=== PATIENT | male | born 1995 | race Two or more races ===

== ENCOUNTER 2021-09-21 08:01 | Outpatient (CLI) | payer OTHER ==
--- NOTE | 2021-09-21 09:38 | MRI Report ---
PROCEDURE: Shoulder LT W/O INDICATIONS: PAIN IN SHOULDER TECHNIQUE: Noncontrast oblique coronal T2 fast spin echo with fat saturation, oblique sagittal T1 spin echo and T2 fast spin echo with fat saturation, axial T1 spin echo and T2 fast spin echo with fat saturation t hrough the shoulder. COMPARISON: None. FINDINGS: Image quality: Excellent. Rotator cuff: Mild T2 signal elevation throughout the supraspinatus and infraspinatus tendons at the humeral insertion sites. Superimposed low-grade intrasubstance tearing of the posterior supraspinatus /anterior infraspinatus tendon junction at the humeral insertion site. Low-grade partial-thickness ar ticular surface tearing of the mid subscapularis tendon at the humeral insertion site. Teres minor is intact. No rotator cuff atrophy. Bones and bursae: No bone marrow contusions or fractures. Mild acromioclavicular joint degeneration. The acromion demonstrates conventional anatomy, without an os acromiale. No pathologic subacromial /subdeltoid bursal fluid is present. Capsule and soft tissues: There is undercutting of the mid posterior labrum. The long head of the bic eps tendon demonstrates normal location and morphology. The rotator interval appears normal, without fibrosis. The coracohumeral ligament is normal in thickness. IMPRESSION: 1. Supraspinatus and infraspinatus tendinopathy. 2. Low-grade tears of the supraspinatus/infraspinatus junction as well as the subscapularis. No full- thickness rotator cuff tear. 3. Acromioclavicular joint osteoarthritis. 4. Possible posterior labral tear. Reviewed by: Evie Brownlee MD on 09/21/2021 9:37 AM PDT Approved by: Evie Brownlee MD on 09/21/2021 9:37 AM PDT Station ID: [id number]
== END 2021-09-21 08:02 | disposition home or self-care (01) ==
LOC: DI 08:01
PROVIDERS: ATTEND Student in an Organized Health Care Education/Training Program
DX: M75.112 Incomplete rotator cuff tear or rupture of left shoulder, not specified as traumatic (principal); M19.012 Primary osteoarthritis, left shoulder; R93.6 Abnormal findings on diagnostic imaging of limbs

== ENCOUNTER 2022-02-06 13:32 | Outpatient (CLI) | payer OTHER ==
[2022-02-06 14:09] VITALS: BP 130/74
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
== END 2022-02-06 13:33 | disposition home or self-care (01) ==
LOC: SC 13:32
PROVIDERS: ATTEND Nurse Practitioner Family
DX: G47.10 Hypersomnia, unspecified (principal); R51.9 Headache, unspecified; R06.83 Snoring
CPT/HCPCS: 99202; 99212

== ENCOUNTER 2022-03-02 09:32 | Outpatient (CLI) | payer OTHER | END 2022-03-02 09:33 | disposition home or self-care (01) | LOC: SC 09:32 | PROVIDERS: ATTEND Nurse Practitioner Family | DX: R06.83 Snoring (principal); G47.8 Other sleep disorders; R06.81 Apnea, not elsewhere classified; R51.9 Headache, unspecified; G47.10 Hypersomnia, unspecified; R53.83 Other fatigue | CPT/HCPCS: 95806 ==

== ENCOUNTER 2022-03-23 10:55 | Outpatient (CLI) | payer OTHER ==
--- NOTE | 2022-03-23 11:22 | SLEEP CARE CONSULTATION ---
Information from patient questionnaire entered by Zulema Sunshine. I have reviewed and concur with the information entered by Zulema Sunshine. This document represents the service I personally performed and the decisions made by , Karla Rebolledo ARNP. History of Present Illness Service Date and Time: 03/23/2022 1055 Initial [place] Sleepiness Scale score: 17 (01/2022) Current [place] Sleepiness Scale score: 17 (03/23/2022) Additional HPI information: LANRE BOUDREAUX returns for follow up and results of the recently performed home sleep study. The patient was informed of the following findings: No significant sleep disordered breathing with an average AHI of 1.4 and florencio oxygen saturation of 92%. I explained the pathophysiology behind obstructive sleep apnea. Patient does not have sleep apnea and was advised how weight gain could increase the risk of developing sleep apnea in the future. I strongly encouraged the patient to lose weight. Patient does not have significant sleep disordered breathing but has elevated AHI in supine position so advised positional therapy. Methods to achieve positional management therapy were discussed; such as, positioning with pillows, wearing a T-shirt with tennis balls sewn into the back or commercial positional belts. Patient has light snoring. Snoring can be reduced by weight loss. Weight loss is best achieved with diet consult. Patient instructed to contact PCP for referral. Snoring can also be treated with an oral appliance from a dentist. Advised to check insurance coverage. In addition, an ENT evaluation can be do to see if other treatment is indicated. Patient counseled not drink alcohol less than 4 hours before bedtime as it can increase snoring and apnea. Patient was cautioned about risks of drowsy driving until sleepiness symptoms resolve. Sleep Study - Results Type of Sleep Study: Home sleep study (completed 03/03/2022) Prior sleep studies: No Polysomnography/Home Sleep Study results: Physician Impression: The quality of the study is good. The length of the study is adequate (> 240 minutes). Please also see the tabulated and graphic data. 1. No significant sleep disordered breathing, with an AHI of 1.4/hr and florencio SaO2 of 92%. During the study, the patient had 6 apneas (6 obstructive, 0 central, 0 mixed) and 0 hypopneas. The longest episode lasted 26.0 seconds. The few respiratory events occurred almost exclusively during supine sleep (supine AHI was 7.4 and non-supine, 0.29). Allergies and Home Medications Drug allergies reviewed: Yes (NKDA) Home medication list reviewed: Yes (no changes) Review of Systems Review of systems same as previous: Yes (no changes) Physical Exam Vital signs obtained and entered by: Zulema Martin MA Blood Pressure: 126/68 (left arm) Cuff size: regular Heart Rate: 62 O2 Saturation: 97 Height: 5 ft 7 in Weight: 193 lb 3.2 oz Body Mass Index: 30.2 BMI Classification: Obese Impression and Plan Snoring but no significant sleep disordered breathing. Patient did have an elevated supine AHI at 7.4. He was advised that he should avoid sleeping supine to control apneas. Patient advised that often weight loss will reduce snoring as well as apnea risk. An oral appliance can also be used for snoring. This would require a dental consultation. Patient cautioned not to use other online appliances as can cause bite issues. A list of accredited dentists in [facility] who make oral appliances is in the office if needed. Patient is advised to check if insurance will cover. An ENT consult can also be helpful to determine if any other treatment is an option. 2. Obesity, unspecified. Currently patients BMI is 30.2. Obesity increases the risk of apnea and overall health risks especially cardiovascular and diabetes. Thus patient is advised to lose weight. * Attempt to lose weight * Avoid supine sleep * Avoid alcohol consumption near bedtime * The patient is cautioned about driving until sleepiness is completely resolved. * Return as needed for follow up. Counseling Topics: Sleeping position, Weight loss health impact Visit Type: In Office Time Spent with Patient (minutes): 11 Provider Statement: I spent 100% of the Face to Face Visit with the patient with greater than 50% spent counseling the patient and coordination of care.
[2022-03-23 11:23] VITALS: BP 126/68
== END 2022-03-23 10:56 | disposition home or self-care (01) ==
LOC: SC 10:55
PROVIDERS: ATTEND Nurse Practitioner Family
DX: R06.83 Snoring (principal); E66.9 Obesity, unspecified; Z68.30 Body mass index [BMI] 30.0-30.9, adult
CPT/HCPCS: 99212